=== PATIENT | female | born 1980 | race Caucasian/White ===

== ENCOUNTER 2021-02-13 12:58 | Emergency (ER) | payer OTHER, SELFPAY ==
[2021-02-13] VITALS (9 sets, daily range): BP systolic 101–120; BP diastolic 66–90; PULSE 67–101; RESP 16–28; TEMP 36.8; O2SAT 98–100
--- NOTE | ~2021-02-13 | XR_ITS ---
EXAMINATION: XR chest 1V portable 02/13/2021 15:46 INDICATION: Weakness, nausea, cough and shortness of breath. Fever. PROCEDURE: AP portable chest COMPARISON: No prior studies for comparison. FINDINGS: The lungs are clear. The cardiomediastinal silhouette is within normal limits. There are no pleural effusions. There is no pneumothorax suspected. IMPRESSION: 1: NO ACUTE CARDIOPULMONARY DISEASE. Reviewed, dictated and finalized at location A.
--- NOTE | 2021-02-13 13:19 | ECG_ITS ---
Measurements Intervals [place] Rate: 83 P: 57 WA: 163 QRS: 19 QRSD: 76 T: 52 QT: 326 QTc: 385 Interpretive Statements SINUS RHYTHM BASELINE ARTIFACT- I, II, III, AVR, AVL, V1-V2, V4-V6 NORMAL ECG Electronically Signed On 02-13-2021 13:56:45 CDT by Tate Salcedo D.O.
[2021-02-13 13:42] LABS: Eosinophils Percent Auto 1.2 % (0-4.4); Hematocrit 39.3 % (37.0-47.0); Hemoglobin 13.3 g/dL (12.0-15.0); Immature Granulocyte Absolute 0.01 K/mm3 (0.00-0.031); Immature Granulocyte Percent A 0.3 % (0-0.5); Immature Platelet Fraction Pct 4.5 % (0.9-11.2); Lymphocytes Absolute Auto 0.61 K/mm3 (0.9-3.2); Lymphocytes Percent Auto 18.8 % (18.3-44.2); Mean Corpuscular HGB Conc 33.8 g/dl (32-36); Mean Corpuscular Volume 85.8 fl (80-100); Mean Platelet Volume 10.6 fl (7.4-10.4); Monocytes Absolute Auto 0.2 K/mm3 (0.1-0.6); Monocytes Percent Auto 5.2 % (2.6-8.5); Neutrophils Absolute Auto 2.4 K/mm3 (1.3-6.7); Neutrophils Percent Auto 74.5 % (45.5-73.1); Platelet Count Result 136 k/mm3 (150-375); Red Blood Count 4.58 M/mm3 (4.2-5.4); White Blood Count 3.2 K/mm3 (4.5-10.0)
[2021-02-13 13:49] LABS: Anion Gap 8 mmol/L (8-16); Blood Urea Nitrogen 10 mg/dL (7-17); Calcium 8.9 mg/dL (8.4-10.2); Carbon Dioxide 23 mmol/L (22-30); Chloride 109 mmol/L (98-107); Estimated CRCL calculation 86 ml/min; Estimated Glomerular Filt Rate > 60; Glucose 110 mg/dL (65-105); Potassium 4.3 mmol/L (3.4-5.0); Sodium 140 mmol/L (137-145)
--- NOTE | 2021-02-13 16:20 | ED.GENADULT ---
HPI - General Adult General Chief complaint: Unspecified Stated complaint: COVID+ just not feeling good Time Seen by Provider: 02/13/21 15:50 Source: patient Mode of arrival: ambulatory Limitations: no limitations History of Present Illness HPI narrative: This is a 40 year old female that presents to the ER for positive covid 8 days ago. Reports ongoing cough, shortness of breath, myalgias and generally feeling unwell. Denies fever or chest pain. Related Data Home Medications Medication Instructions Recorded Confirmed sumatriptan succinate mg PO 02/13/21 topiramate 02/13/21 Allergies Allergy/AdvReac Type Severity Reaction Status Date / Time No Known Allergies Allergy Verified 02/13/21 16:30 Review of Systems Review of Systems: Narrative: CONSTITUTIONAL: Denies fever ENT: Reports rhinorrhea, congestion CARDIOVASCULAR: Denies chest pain, or edema. RESPIRATORY: Reports cough and dyspnea. GASTROINTESTINAL: Reports nausea All systems reviewed & are unremarkable except as noted in HPI and below PMFSH Past Medical History Medical History (Updated 02/13/21 @ 18:07 by Pratibha Trent PA-C) History of migraine Social History Social History (Updated 02/13/21 @ 16:24 by Pratibha Trent PA-C) Smoking status: Current every day smoker Substance use: never Exam Narrative: Exam Narrative: GENERAL: Well-appearing, well-nourished, and in no acute distress. HEAD: Normocephalic, atraumatic. EYES: EOMI. ENT: Nares clear, no rhinorrhea or epistaxis. Mucous membranes moist. Oropharynx without tonsillar hypertrophy exudate or other lesions. Bilateral TMs pearly barroso non-bulging NECK: Supple. No adenopathy or masses. CHEST: Clear to auscultation. No respiratory distress. No wheezes rales or rhonchi HEART: Regular rate and rhythm. No murmur heard. Normal peripheral pulses. EXTREMITIES: Normal range of motion. No edema. SKIN: Warm, dry, no rash. NEURO: No focal deficits. Alert and oriented x3. PSYCH: Normal mood and affect Course Vital Signs Vital signs: Vital Signs Temperature 98.3 F 02/13/21 13:17 Pulse Rate 85 02/13/21 13:17 Respiratory Rate 16 02/13/21 13:17 Blood Pressure 120/75 02/13/21 13:17 Pulse Oximetry 100 02/13/21 13:17 Temperature 98.3 F 02/13/21 13:17 Pulse Rate 85 02/13/21 13:17 Respiratory Rate 22 H 02/13/21 16:28 Blood Pressure 120/75 02/13/21 13:17 Pulse Oximetry 100 02/13/21 13:17 Medical Decision Making MDM Narrative Medical decision making narrative: Patient presents to the emergency department for shortness of breath, nausea, and cough. Recently diagnosed with Covid. She is afebrile and nontoxic-appearing. Vitals are stable. Oxygen saturation has remained normal on room air. CBC and metabolic panel without concerning findings. Metabolic panel does show mild transaminitis, likely due to Covid infection. UA without evidence of infection. EKG is without concerning changes and baseline troponin is negative. D-dimer is not elevated. Chest x-ray is clear. Patient instructed on continued care of viral infection. She is to follow-up with her primary care doctor. She was given warnings to return to the ER Vital Signs Vital Signs: Vital Signs Temperature 98.3 F 02/13/21 13:17 Pulse Rate 85 02/13/21 13:17 Respiratory Rate 16 02/13/21 13:17 Blood Pressure 120/75 02/13/21 13:17 Pulse Oximetry 100 02/13/21 13:17 Temperature 98.3 F 02/13/21 13:17 Pulse Rate 85 02/13/21 13:17 Respiratory Rate 22 H 02/13/21 16:28 Blood Pressure 120/75 02/13/21 13:17 Pulse Oximetry 100 02/13/21 13:17 Lab Data Lab results reviewed: Yes I reviewed the patient's lab results. Result diagrams: 02/13/21 13:22 02/13/21 13:22 Labs: Lab Results 02/13/21 02/13/21 02/13/21 Range/Units 13:22 13:22 16:26 WBC 3.2 L (4.5-10.0) K/mm3 RBC 4.58 (4.2-5.4) M/mm3 Hgb 13.3 (12.0-15.0) g/dL Hct 39.3
[2021-02-13 16:52] LABS: Add Urine Microscopic? YES; Appearance Urine Cloudy (Clear); Bacteria Urine 4+ /hpf; Bilirubin Urine Negative (Negative); Blood Urine Negative (Negative); Color Urine Yellow (Yellow); Glucose Urine UA Negative (Negative); Ketones Urine Negative (Negative); Leukocyte Esterase Ur Negative LEU/UL (Negative); Mucus Urine Moderate /lpf; Nitrate Urine Negative (Negative); Protein Urine Negative (Negative); RBC Urine 0-2 /hpf (0-2); Squamous Epithelial Cell Urine Occasional /hpf (Few)
[2021-02-13] MEDS: ONDANSETRON HCL ODT 4 MG TABLET PO (16:55)
[2021-02-13 17:07] LABS: Prothrombin Time 13.3 Seconds (11.1-14.7)
[2021-02-13 17:08] LABS: Partial Thromboplastin Time 27.7 SECONDS (22.3-36.8)
[2021-02-13 17:09] LABS: Alanine Aminotransferase 49 U/L (4-35); Albumin Level 3.9 g/dL (3.5-5.1); Alkaline Phosphatase 83 U/L (38-126); Aspartate Amino Transferase 44 U/L (14-36); Bilirubin,Total 0.2 mg/dL (0.2-1.3); Lipase 53 U/L (23-300)
[2021-02-13 17:10] LABS: D Dimer 0.39 ug/mL (<0.48)
[2021-02-13 17:49] LABS: Troponin I < 0.012 ng/mL (0.000-0.034)
== END 2021-02-13 18:25 | disposition home or self-care (01) ==
PROVIDERS: Physician Assistant; Emergency Provider Emergency Medicine; PCP Emergency Medicine
DX: U07.1 COVID-19 (principal); F17.200 Nicotine dependence, unspecified, uncomplicated
CPT/HCPCS: 36415; 71045; 80048; 80076; 81001; 83690; 84484; 85025; 85055; 85380; 85610; 85730; 93005; 99284; A9270

== ENCOUNTER 2021-08-13 13:53 | Outpatient (CLI) | payer OTHER, SELFPAY ==
--- NOTE | ~2021-08-13 | MM_ITS ---
EXAMINATION: MM screening joe BI w sarthak HISTORY: Screening TECHNIQUE: Craniocaudal and mediolateral oblique 3-D tomosynthesis images were obtained and synthetic 2-D images were generated. CAD analysis was submitted and interpreted. COMPARISON: No prior mammogram is available for comparison at this institution. BREAST PARENCHYMAL COMPOSITION: The breasts are extremely dense, which lowers the sensitivity of mamm ography FINDINGS: There is no evidence of suspicious mass, calcification, or architectural distortion to sugg est malignancy in either breast. There has been no suspicious interval change. IMPRESSION: 1. No mammographic evidence of malignancy. 2. Recommend routine screening mammography in one year. BI-RADS Category 1: Negative Reviewed, dictated and finalized at location A. ING EXECUTIVE
== END 2021-08-13 13:54 | disposition home or self-care (01) ==
LOC: ANHIMG 13:57
PROVIDERS: PCP Emergency Medicine; Visit Provider Emergency Medicine
DX: Z12.31 Encounter for screening mammogram for malignant neoplasm of breast (principal)
CPT/HCPCS: 77063; 77067